=== PATIENT | female | born 2000 | race Caucasian/White ===

== ENCOUNTER 2024-03-06 20:57 | Emergency (ER) | payer SELFPAY ==
[~2024-03-06] VITALS: Ht 172.7 cm; Wt 69.0 kg
[2024-03-06 22:15] VITALS: BP 112/70; PULSE 73; RESP 16; TEMP 98.4; O2SAT 98
[2024-03-06] MEDS ORDERED: DOXY-456 MT (22:51)
[2024-03-06] MEDS: CEFTRIAXONE SODIUM 500MG VIAL IM ONE (22:52)
[2024-03-06] MEDS: DOXYCYCLINE HYCLATE 100MG CAPSULE PO ONE (22:53)
[2024-03-06 22:54] LABS: CLARITY URINE CLEAR (CLEAR); COLOR URINE YELLOW (YELLOW); GLUCOSE URINE NEGATIVE (NEGATIVE); KETONES URINE NEGATIVE (NEGATIVE); LEUKOCYTE ESTERASE URINE 3+ (NEGATIVE); NITRITE URINE POSITIVE (NEGATIVE); OCCULT BLOOD URINE NEGATIVE (NEGATIVE); PH URINE 7.5 (4.5-8.0); PROTEIN URINE NEGATIVE (NEGATIVE); SPECIFIC GRAVITY URINE 1.011 (1.005-1.030); UROBILINOGEN URINE 0.2 E.U./dL (0.2-1.0)
[2024-03-06 23:19] LABS: BACTERIA URINE 4+; SQUAMOUS EPITHELIAL CELL URINE 1+ /lpf (RARE/1+)
== END 2024-03-06 22:58 | disposition home or self-care (01) ==
LOC: ER 20:57
DX: Z20.2 Contact with and (suspected) exposure to infections with a predominantly sexual mode of transmission (principal); Z88.8 Allergy status to other drugs, medicaments and biological substances
CPT/HCPCS: 99283; 81003; 81025; 96372; J0696